=== PATIENT | female | born 1965 | race African-American/Black ===

== ENCOUNTER 2017-10-14 00:46 | Emergency (ER) | payer BC ==
[~2017-10-14] VITALS: Ht 165.1 cm; Wt 111.1 kg
--- NOTE | ~2017-10-14 | EKG ---
[place] [address] [facility] [place] [address] ELECTROCARDIOGRAM REPORT Name: CROW PICHARDO [facility] [id number] Admission: 10/14/17 Attend Phys: Discharge: 10/14/17 Date of : 61 Report #: [id number] THIS REPORT FOR: //name// [facility] ED Test Date: 2017-10-14 Test Time: 01:32:54 Pat Name: CROW PICHARDO Department: Room: Gender: F Upset Operator: MARY : 1965 Requested By: Alex Giraldo Order Number: [id number] MD: Armin Hamilton Measurements Intervals [place] Rate: 76 P: 50 AL: 174 QRS: 3 QRSD: 93 T: 122 QT: 421 QTc: 474 Interpretive Statements Sinus rhythm Probable left atrial enlargement Probable left ventricular hypertrophy Nonspecific T abnormalities, lateral leads Compared to ECG 05/12/2010 18:01:07 No significant changes Electronically Signed On 10-14-2017 7:36:23 CDT by Armin Hamilton [email or web address] <ELECTRONICALLY SIGNED> By: Armin Hamilton MD 10/14/17 [id number] Armin Hamilton MD /MANN
[~2017-10-14 00:46] MED LIST: CLEOCIN HCL150 MG PO; LISINOPRIL40 MG PO; REGLAN 5 MG TAB5 M1 PO; ZPAK PO
[2017-10-14] MEDS ORDERED: NORVASC2.5 MG (01:10)
[2017-10-14] MEDS ORDERED: ASPIR 8181 M1 PO (01:10)
[2017-10-14 01:30] LABS: URINE BILIRUBIN NEGATIVE (Negative); URINE BLOOD NEGATIVE (Negative); URINE CLARITY CLEAR; URINE COLOR YELLOW; URINE GLUCOSE-RANDOM* NEGATIVE (Negative); URINE KETONES NEGATIVE (Negative); URINE LEUKOCYTES-REFLEX NEGATIVE (Negative); URINE NITRITE-REFLEX NEGATIVE (Negative); URINE PROTEIN (DIPSTICK) NEGATIVE (Negative); URINE SPECIFIC GRAVITY >= 1.030 (1.005-1.035); URINE UROBILINOGEN 0.2 E.U./dl (0.2-1.0)
[2017-10-14 01:32] LABS: BASOPHILS 0.8 % (0.0-2.0); EOSINOPHILS 2.2 % (0.0-3.0); HEMATOCRIT 34.4 % (37.0-47.0); HEMOGLOBIN 11.4 gm/dL (12.0-15.0); LYMPHOCYTES 39.6 % (24.0-44.0); MCH 26.1 pg (26.0-34.0); MCV 78.9 fL (80.0-100.0); MONOCYTES 7.5 % (1.0-8.0); PLATELET COUNT 259 thou/uL (150-400); POLYS 49.9 % (36.0-66.0); RBC 4.37 mil/uL (4.20-5.00); RDW 14.2 % (10.5-14.5)
[2017-10-14 01:39] LABS: ANION GAP 10 mmol/L (7-16); BUN 17 mg/dL (7-18); CALCIUM 8.8 mg/dL (8.5-10.1); CHLORIDE 105 mmol/L (98-107); CO2 26 mmol/L (21-32); CREATININE 0.8 mg/dL (0.6-1.0); GLUCOSE 151 mg/dL (74-106); SODIUM 141 mmol/L (136-145)
[2017-10-14 01:48] LABS: ALBUMIN 3.3 g/dL (3.4-5.0); MAGNESIUM 2.1 mg/dL (1.8-2.4); SGOT 15 U/L (15-37); SGPT 24 U/L (30-65); TOTAL BILIRUBIN 0.3 mg/dL (<0.1-1.0); TOTAL PROTEIN 7.1 g/dL (6.4-8.2); TROPONIN-I < 0.04 ng/mL (<0.06)
[2017-10-14] MEDS ORDERED: TRAMADOL 50 MG50 MG PO (04:50)
[2017-10-14] MEDS ORDERED: ZOFRAN ODT8 MG PO (04:50)
[2017-10-14] MEDS ORDERED: PEPCID20 MG PO (04:50)
[2017-10-14 06:52] VITALS: BP 117/66
== END 2017-10-14 06:53 | disposition home or self-care (01) ==
LOC: ER 00:46
PROVIDERS: Emergency Medicine
DX: R10.9 Unspecified abdominal pain (principal); R07.9 Chest pain, unspecified; M54.5 Low back pain; I10 Essential (primary) hypertension; Z90.710 Acquired absence of both cervix and uterus; Z88.0 Allergy status to penicillin

== ENCOUNTER 2018-06-05 09:04 | Emergency (ER) | payer BC ==
[~2018-06-05] VITALS: Ht 162.6 cm; Wt 101.2 kg
[~2018-06-05 09:04] MED LIST changes: +ASPIR 8181 M1 PO; +FLEXERIL PO; +HYDROCODON-ACE1 EAC7 PO; +NORVASC2.5 MG; +PEPCID20 MG PO; +SYNTHROID75 MCG PO; +TRAMADOL 50 MG50 MG PO; +TRULICITY1.5 MG/0.5 SUBLING; +ZOFRAN ODT8 MG PO
[2018-06-05] MEDS ORDERED: GLUCOTROL5 MG PO (09:13)
[2018-06-05] MEDS ORDERED: SENNA8.6 MG PO (10:40)
[2018-06-05] MEDS ORDERED: NORCO 5-325 TA1 EACH PO (10:40)
[2018-06-05] MEDS ORDERED: HYDROXYZINE HCL25 M1 PO (10:52)
[2018-06-05 10:56] VITALS: BP 163/85
== END 2018-06-05 11:04 | disposition home or self-care (01) ==
LOC: ER 09:04
DX: S82.62XA Displaced fracture of lateral malleolus of left fibula, initial encounter for closed fracture (principal); I10 Essential (primary) hypertension; Z88.0 Allergy status to penicillin; Z88.7 Allergy status to serum and vaccine; Z90.710 Acquired absence of both cervix and uterus; W01.0XXA Fall on same level from slipping, tripping and stumbling without subsequent striking against object, initial encounter; Y93.89 Activity, other specified; Y92.89 Other specified places as the place of occurrence of the external cause; Y99.8 Other external cause status

== ENCOUNTER 2018-08-15 17:29 | Emergency (ER) | payer BC ==
[~2018-08-15 17:29] MED LIST changes: +GLUCOTROL5 MG PO; +HYDROXYZINE HCL25 M1 PO; +NORCO 5-325 TA1 EACH PO; +SENNA8.6 MG PO
== END 2018-08-15 18:33 ==
LOC: ER 17:29
DX: Z53.21 Procedure and treatment not carried out due to patient leaving prior to being seen by health care provider (principal)